=== PATIENT | female | born 1935 | race Caucasian/White ===

== ENCOUNTER → 2019-10-31 | Outpatient (CLI) | payer MEDICARE ==
--- NOTE | 2019-10-31 14:48 | CT ---
EXAMINATION TYPE: CT ChestAbdPelvis w con DATE OF EXAM: 10/31/2019 COMPARISON: CT chest 06/01/2012 HISTORY: chest pain, SOB, fatigue. hx of lymphoma. CT DLP: 614 mGycm CONTRAST: CT scan of the chest, abdomen and pelvis is performed with Oral Contrast and with IV Contrast, patien t injected with 100 mL of Isovue 300. CT Chest: LUNGS: The lungs are clear and free of infiltrate or atelectasis. No pulmonary nodule or mass is det ected. No pleural effusion or CT evidence of interstitial lung disease. MEDIASTINUM: Thoracic aorta is of normal caliber. The heart is markedly enlarged. No evidence for mediastinal mass or adenopathy. HILAR STRUCTURES: No evidence for mass. No hilar adenopathy is appreciated. OTHER: No significant abnormality. CONTRAST CT ABDOMEN AND PELVIS FINDINGS: LIVER/GB: No calcified gallstones. No space occupying hepatic lesion. Biliary tree is of normal ca liber. PANCREAS: No inflammation. No distinct mass. SPLEEN: No splenic enlargement. No lesion seen. ADRENALS: No nodule. No thickening. KIDNEYS/BLADDER: No hydronephrosis. No nephrolithiasis. No disctinct renal mass. Suprapubic urinar y bladder catheter identified. BOWEL: Normal appendix. Normal bowel caliber. No inflammation. GENITAL ORGANS: No gross abnormality. LYMPH NODES: No greater than 1cm abdominal or pelvic lymph nodes are appreciated. AORTA: No significant abnormality. OSSEOUS STRUCTURES: No significant abnormality is seen. OTHER: No significant additional abnormality is seen. IMPRESSION: 1. No evidence for adenopathy at this time.
== END | disposition home or self-care (01) ==
LOC: RADCTMAIN 12:15
PROVIDERS: ATTEND Internal Medicine Hematology & Oncology
DX: C85.98 Non-Hodgkin lymphoma, unspecified, lymph nodes of multiple sites (principal)
CPT/HCPCS: 82565; 84520; 71260; 74177; 36415; Q9967

== ENCOUNTER → 2021-05-23 | Outpatient (CLI) | payer MEDICARE ==
--- NOTE | 2021-05-23 17:30 | CT ---
EXAMINATION TYPE: CT lumbar spine wo con DATE OF EXAM: 05/23/2021 COMPARISON: None HISTORY: Chronic low back pain, no injury. CT DLP: 741 mGycm CONTRAST: None TECHNIQUE: CT of the lumbar spine is performed on a spiral scan at 3 mm thick sections. Reconstructed images are performed in the coronal and sagittal planes. FINDINGS: T12-L1: No focal disc herniation or significant disc bulge is evident. No spinal canal stenosis or neural foraminal stenosis is present. L1-L2: There is a retrolisthesis grade 1 of L1 posteriorly on L2. There is loss of disc height to thi s level. Disc uncovering is present with anterior thecal sac contact neural foramen appear patent L2-L3: There is loss of disc height is level. Minimal endplate spurring may be present. No AP spinal canal stenosis is present. Neural foramen are patent. L3-L4: Minimal disc bulge with anterior thecal sac contact. No AP spinal canal stenosis is present. S ome facet hypertrophy and ligamentum flavum laxity has posterior lateral thecal sac contact. L4-L5: There is loss of disc height through this level. Mild anterior thecal sac contact is present. Facet hypertrophy is some mild lateral canal narrowing. No AP spinal canal stenosis present. Moderate right and mild left foraminal narrowing may be present. L5-S1: There is loss of disc height is level. Disc uncovering is present from a grade 1 spondylolisth esis. No AP spinal canal stenosis is present. Moderate bilateral foraminal narrowing is present. This may be approaching severe with some disc bulging in close approximation with the left exiting S1 ner ve root. Correlate with radicular symptoms. IMPRESSION: 1. Severe left foraminal stenosis L5-S1. Correlate with left S1 radicular symptoms. 2. Grade 1 spondylolisthesis of L1 posterior at L2 and L4 anterior on L5. 3. Multilevel loss of disc height discussed above.
== END | disposition home or self-care (01) ==
LOC: RADCTMAIN 14:49
PROVIDERS: ATTEND Physical Medicine & Rehabilitation
DX: M47.816 Spondylosis without myelopathy or radiculopathy, lumbar region (principal); M43.16 Spondylolisthesis, lumbar region; M99.73 Connective tissue and disc stenosis of intervertebral foramina of lumbar region
CPT/HCPCS: 72131